=== PATIENT | male | born 1980 | race Caucasian/White ===

== ENCOUNTER → 2017-06-20 | Outpatient (CLI) | payer BC ==
[~2017-06-20] MED LIST: AZIT250T12 PO; PRD20T PO; RANI150C11 PO; RT-ALBUINH IH; anxiety medication PO; triglyceride med PO
== END ==
LOC: PREOP 05:50
PROVIDERS: ATTEND Surgery
DX: Z01.818 Encounter for other preprocedural examination (principal); K21.9 Gastro-esophageal reflux disease without esophagitis; R19.7 Diarrhea, unspecified

== ENCOUNTER → 2017-07-27 | Outpatient (CLI) | payer BC ==
[~2017-07-27] MED LIST changes: +ALPR0.5T PO; +ATOR10TA66 PO; +BUPR150T14 PO; +BUSP15TA60 PO; +CATHETER FLUSH 10 ML SYR IV PRN; +CITA20TA9 PO; +DICY10CA12 PO; +GEMF600T3 PO; +OMEP40CA36 PO; +PANT40TA2 PO
--- NOTE | 2017-07-27 14:15 | Diagnostic Imaging Report ---
Indication: Abdominal pain Exam: Hepatobiliary scan with gallbladder ejection. Technique: 5.44 mCi of technetium 99m Choletec was given for the uptake. One can of Ensure was given at 60 minutes for the gallbladder ejection fraction. There is homogeneous uptake of isotope throughout the liver. The cystic duct and common duct are both patent. The gallbladder ejection fraction measured 39%. Impression: Cystic duct and common duct are both patent. Dictated by: Dictated on workstation # [id number]
--- NOTE | 2017-07-31 10:22 | Physician Query-Final Dx ---
DEWAYNE WALL 07/31/17 1022: Clinic Account Progress/Dx Physician Query: Please specify the location of the patients abd pain thank you Date of Service July 27, 2017 at 09:49 YOCASTA SNOWDEN DO 08/15/17 1411: Clinic Account Progress/Dx Physician Query: Please give diagnosis DIAGNOSIS: Diagnosis epigastric abdominal pain DEWAYNE WALL July 31, 2017 10:22 YOCASTA SNOWDEN DO August 15, 2017 14:11
== END ==
LOC: CARD 09:49
PROVIDERS: ATTEND Surgery
DX: R10.13 Epigastric pain (principal)
CPT/HCPCS: 78227

== ENCOUNTER 2017-10-31 08:58 | Outpatient (CLI) | payer BC ==
[~2017-10-31] VITALS: Ht 182.9 cm; Wt 98.4 kg
[~2017-10-31 08:58] MED LIST changes: -CATHETER FLUSH 10 ML SYR IV PRN; -GEMF600T3 PO; +GEMF600T4 PO
[2017-10-31 09:09] VITALS: BP 140/88
[2017-10-31] MEDS ORDERED: PANT40TA3 PO (09:11)
[2017-10-31 09:31] LABS: BASOPHILS % (AUTO) 0 % (0-10); EOSINOPHILS # (AUTO) 0.3 10^3/uL (0.0-0.3); EOSINOPHILS % (AUTO) 4 % (0-10); HEMATOCRIT 37 % (40-54); HEMOGLOBIN 12.9 G/DL (13.3-17.7); LYMPHOCYTES # (AUTO) 2.2 X 10^3 (1.0-4.0); LYMPHOCYTES % (AUTO) 24 % (12-44); MEAN CORPUSCULAR HGB CONC 35 G/DL (32-36); MEAN CORPUSCULAR VOLUME 88 FL (80-99); MEAN PLATELET VOLUME 10.4 FL (7.4-10.4); MONOCYTES # (AUTO) 0.5 X 10^3 (0.0-1.0); MONOCYTES % (AUTO) 6 % (0-12); NEUTROPHILS # (AUTO) 6.1 X 10^3 (1.8-7.8); NEUTROPHILS % (AUTO) 67 % (42-75); PLATELET COUNT 294 10^3/uL (130-400); RED BLOOD COUNT 4.23 10^6/uL (4.35-5.85); WHITE BLOOD COUNT 9.1 10^3/uL (4.3-11.0)
[2017-10-31 09:32] LABS: MEAN CORPUSCULAR HEMOGLOBIN 30 PG (25-34)
== END 2017-10-31 09:22 | disposition home or self-care (01) ==
LOC: PREOP 08:58
PROVIDERS: ATTEND Surgery
DX: Z01.812 Encounter for preprocedural laboratory examination (principal); Z11.2 Encounter for screening for other bacterial diseases; K82.8 Other specified diseases of gallbladder
CPT/HCPCS: 36415; 85025; 87081

== ENCOUNTER 2017-11-02 08:00 | Day surgery (SDC) | payer BC ==
[~2017-11-02] VITALS: Ht 182.9 cm; Wt 98.4 kg
[~2017-11-02 08:00] MED LIST changes: +PANT40TA3 PO
[2017-11-02 08:20] VITALS: BP 134/88
[2017-11-02] MEDS: LACTATED RINGERS 1,000 ML IV PRN ×2 (08:25→10:05)
[2017-11-02] MEDS ORDERED: ceFAZolin 2 GM IV Premixed 50 ML ONE (08:34)
[2017-11-02] MEDS ORDERED: BUPIVACAINE 0.5% 30 ML (SENSORCAINE) VIAL ONE (08:59)
[2017-11-02] MEDS ORDERED: LIDOCAINE 1% INJ 20 ML 20 ML VIAL ONE (08:59)
--- NOTE | 2017-11-02 09:10 | Progress Note-Pre Operative ---
Pre-Operative Progress Note H&P Reviewed The H&P was reviewed, patient examined and no changes noted. Date Seen by Provider: Nov 02, 2017 Time Seen by Provider: 09:09 Date H&P Reviewed: Nov 02, 2017 Time H&P Reviewed: 09:09 Pre-Operative Diagnosis: RUQ ABDOMINAL PAIN, BILIARY DYSKINESIA YOCASTA SNOWDEN DO Nov 02, 2017 09:10
[2017-11-02] MEDS ORDERED: ceFAZolin 2 GM IV Premixed 50 ML IV ONE (09:15)
[2017-11-02] MEDS ORDERED: SEVOFLURANE (ULTANE) 15 ML INHAL SOLN ONE ×2 (09:19→10:29)
[2017-11-02] MEDS ORDERED: LACTATED RINGERS 1,000 ML IV ONE (09:19)
[2017-11-02] MEDS ORDERED: proPOfol 200 MG/20 ML (DIPRIVAN) VIAL IV ONE (09:19)
[2017-11-02] MEDS ORDERED: ROCURONIUM 10 MG/ML 5 ML SYRINGE IV ONE (09:19)
[2017-11-02] MEDS ORDERED: LIDOCAINE PF 2% 5 ML (XYLOCAINE) VIAL ONE (09:19)
[2017-11-02] MEDS ORDERED: MIDAZOLAM 2 MG/2 ML (VERSED) VIAL ONE (09:25)
[2017-11-02] MEDS ORDERED: fentaNYL INJECTION 100 MCG/2 ML AMP ONE (09:25)
--- NOTE | 2017-11-02 10:22 | Progress Note-Post Operative ---
Post-Operative Progess Note Surgeon (s)/Field Technical Support Consultant (s) Surgeon YOCASTA SNOWDEN DO Field Technical Support Consultant: Dr. Mcallister Pre-Operative Diagnosis RUQ ABDOMINAL PAIN, BILIARY DYSKINESIA Post-Operative Diagnosis same Procedure & Operative Findings Date of Procedure 11/02/17 Procedure Performed/Findings lap nirali c ioc Anesthesia Type gen Estimated Blood Loss Estimated blood loss (mL): min Specimens/Packing Specimens Removed gallbladder YOCASTA SNOWDEN DO Nov 02, 2017 10:22
[2017-11-02] MEDS ORDERED: DOCU-143 PO (10:23)
[2017-11-02] MEDS ORDERED: ACHD5005 PO (10:23)
--- NOTE | 2017-11-02 10:25 | Discharge Inst-Simple/Standard ---
Discharge Inst-Standard Discharge Medications New, Converted or Re-Newed RX: RX on Chart Patient Instructions/Follow Up Plan of Care/Instructions/FU: 2 weeks Paula Activity as Tolerated: No Discharge Diet: Regular Diet Other Inst to Patient Follow up Appt: Make appointment for 2 weeks. Instructions: No lifting greater than 10 pounds. No strenuous activity. May shower in 24 hours, no tub bath or soaking. Use incentive spirometer at home as directed. No Smoking Skin/Wound Care: You have special glue over incisions it will fall off on its own. Symptoms to Report: Appetite Changes, Extremity Discoloration, Numbness/Tingling, Swelling Increased , Bleeding Excessive, Eyesight Changes, Pain Increased, Urine Color Change, Constipation(Persistent), Fever over 101 degree F, Pain/Pressure in chest, Urinating Difficulty, Cough Up/Vomit Blood, Heart Beat Irreg/Pounding, Pain/ Pressure in jaw, Vaginal Bleeding Increase, Cramps in feet or legs, Lightheadedness, Pain/Pressure in shoulder, Diarrhea(Persistent), Memory Changes Suddenly, Questions/Concerns, Weight gain consecutive days, Dizziness/ Fainting, Nausea/Vomiting, Shortness of Breath, Weight gain over 2 pounds. If eyes or skin turn yellow notify physician. If questions or concerns contact your physician Or seek help at emergency department. YOCASTA SNOWDEN DO Nov 02, 2017 10:25
[2017-11-02] MEDS ORDERED: HYDROcodone/APAP 5 MG/325 MG (LORTAB) TAB PO PRN (10:30)
[2017-11-02] MEDS ORDERED: morphine INJ 10 MG/ML 1ML (SYR OR VIAL) ONE (10:34)
[2017-11-02] MEDS ORDERED: ONDANSETRON 4 MG/2 ML (SDV) Z0FRAN IVP PRN (10:45)
[2017-11-02] MEDS ORDERED: MEPERIDINE (DEMEROL) INJ 50 MG/ML IVP PRN (10:45)
[2017-11-02] MEDS: morphine INJ 10 MG/ML 1ML (SYR OR VIAL) IVP PRN ×2 (11:01→11:06)
[2017-11-02 11:30] VITALS: BP 134/92
--- NOTE | 2017-11-02 11:45 | Diagnostic Imaging Report ---
Indication: Intraoperative cholangiogram. Fluoroscopy was provided for Dr. Mitchell in the OR during intraoperative cholangiogram. 6.6 seconds of fluoroscopy was utilized. Images demonstrate contrast being injected via the cystic duct remnant. Intrahepatic and extrahepatic bile ducts are normal in caliber. No filling defects are seen. There is flow of contrast into the duodenum. Impression: Fluoroscopy during intraoperative cholangiogram. Dictated by: Dictated on workstation # [id number]
[2017-11-02 12:00] VITALS: BP 155/78
--- NOTE | 2017-11-02 12:26 | Anesthesia-General Post-Op ---
General Patient Condition Mental Status/LOC: Same as Preop Cardiovascular: Satisfactory Nausea/Vomiting: Absent Respiratory: Satisfactory Pain: Controlled Complications: Absent Post Op Complications Complications None Follow Up Care/Instructions Patient Instructions None needed. Anesthesia/Patient Condition Patient Condition Patient is doing well, no complaints, stable vital signs, no apparent adverse anesthesia problems. No complications reported per nursing. D/C home per [facility] Criteria: Yes MAYANK MUIR CRNA Nov 02, 2017 12:26
[2017-11-02 12:30] VITALS: BP 147/85
--- NOTE | 2017-11-02 13:22 | OPERATIVE REPORT ---
DATE OF SERVICE: 11/02/2017 PREOPERATIVE DIAGNOSES: Right upper quadrant abdominal pain, biliary dyskinesia. POSTOPERATIVE DIAGNOSES: Right upper quadrant abdominal pain, biliary dyskinesia. PROCEDURE: Laparoscopic cholecystectomy with intraoperative cholangiogram. SURGEON: Yocasta Mitchell DO LOCAL DELIVERY TRUCK DRIVER: Dr. Mcallister, assisted in retraction, dissection and closure. ANESTHESIA: General. ESTIMATED BLOOD LOSS: Minimal. COMPLICATIONS: None. INDICATIONS: The patient is a 36-year-old male, who has been treated for reflux, but no improved symptoms. A gallbladder workup was borderline for biliary dyskinesia. He understands risks and benefits of procedure and wished to proceed with procedure. Consent was signed and on the chart. DESCRIPTION OF PROCEDURE: The patient was taken to the operating suite, was prepped and draped in sterile fashion. Surgical pause was performed. A 12 mm incision was made at the umbilicus, dissected down to the fascia, which was then scored, grasped and the abdomen was entered. A balloon trocar was inserted and the abdomen was insufflated with gas. Under direct visualization of the laparoscope, a 5 mm trocar was then placed in subxiphoid region and two 5 mm trocars were placed in the right upper quadrant. Gallbladder was grasped, elevated. Some slight adhesions to the gallbladder, which were then taken down. The cystic duct and cystic artery were then dissected out. Clips were placed on the proximal and distal portion of the cystic artery and this was then transected. The duct was dissected around and clip was placed on the distal portion of the cystic duct and the duct was then partially transected. Arrow catheter was inserted into the duct and cholangiogram was performed. There were no filling defects. Contrast made its way into the duodenum without difficulty. The Arrow catheter was removed. Clips were placed on the proximal portion of the cystic duct and the duct was then completely transected. The hook cautery was used to dissect the gallbladder from the gallbladder fossa achieving hemostasis. Gallbladder was placed in an Endobag and removed through 12 mm trocar site. The abdomen was irrigated and suctioned with copious amounts of irrigation. Hemostasis had been achieved. The trocars were removed. The abdomen was desufflated. The fascial defect was then closed using 0 Vicryl in a [id number] fashion. The skin was then closed using 4-0 Monocryl in a subcuticular fashion. The area was then washed and dried and Skin Affix was placed over the incisions. The patient tolerated the procedure well without any complications. He was taken to the recovery room in stable condition. Job ID: [id number] DocumentID: [id number] Dictated Date: 11/02/2017 10:28:34 Batch Tester Date: 11/02/2017 13:21:36 Dictated By: YOCASTA MITCHELL DO
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
== END 2017-11-02 12:36 | disposition home or self-care (01) ==
LOC: SDC 08:00
PROVIDERS: ATTEND Surgery
DX: K82.8 Other specified diseases of gallbladder (principal); E78.5 Hyperlipidemia, unspecified; F32.9 Major depressive disorder, single episode, unspecified; F41.9 Anxiety disorder, unspecified; K21.9 Gastro-esophageal reflux disease without esophagitis; F17.210 Nicotine dependence, cigarettes, uncomplicated; Z79.899 Other long term (current) drug therapy
CPT/HCPCS: 94664